=== PATIENT | male | born 1980 | race Caucasian/White ===

== ENCOUNTER 2021-10-02 15:49 | Emergency (ER) | payer SELFPAY ==
[2021-10-02 15:53] VITALS: BP 150/93; PULSE 94; RESP 16; TEMP 36.4; O2SAT 96; BMI 24.3
--- NOTE | 2021-10-02 16:04 | W.ED.EXTPRO ---
Documented by User: VIGNESH Broussard 10/02/21 16:12 HPI - Extremity Problem General: Chief complaint: Extremity Injury, Lower Stated complaint: left foot injury Time Seen by Provider: 10/02/21 15:50 Source: patient Mode of arrival: ambulatory Limitations: no limitations History of Present Illness: Patient is a 41-year-old male who presents to ED today after being referred here from the walk-in clinic for concerns of left lower extremity pain and swelling. Patient states he began noticing swelling approximately 4 to 5 days ago and states it has progressively worsened. He denies any obvious injury or trauma but states for work he often does jump down from things and may be tweaked something in there. He states he is ambulatory without assistance and does not complain of pain to any particular area of the extremity. Patient denies numbness, tingling, loss of sensation. Denies coolness or pallor to the extremity. He states he does often have long car rides for work. No history of malignancy. No recent surgeries. MD Complaint: extremity pain and extremity swelling Onset (ago): day(s) Pain Consistency: constant Location: left and lower extremity Radiation: none Relieving factors: other (reports pain is improved first thing in the morning and worsens throughout the day) Exacerbating factors: weight bearing and walking Associated symptoms: Reports no associated symptoms; Deny chest pain, fever(s) or rash Review of Systems Const: Denies: fever(s), chills, body aches, fatigue or malaise Card: Denies: chest pain Resp: Denies: dyspnea GI: Denies: abdominal pain Musc: Reports: extremity pain and extremity swelling; Denies: neck pain, back pain, joint pain or joint swelling Skin/Breast: Denies: rash Neuro: Denies: headache(s), numbness in extremities, weakness in extremities, sensory changes or difficulty walking [facility] ED PFSH: Social History Smoking and tobacco status: current every day smoker Physical Exam Const: COMMON NORMALS: no acute distress, patient oriented x3, no limitations and alert GENERAL APPEARANCE: cooperative ORIENTATION/CONSCIOUSNESS: Yes awake, Yes oriented to person, Yes oriented to place and Yes oriented to time Resp: COMMON NORMALS: normal respiratory effort and clear to auscultation bilaterally AUSCULTATION: clear to auscultation bilaterally Cardio: COMMON NORMALS: regular rate and regular rhythm RATE: regular rate RHYTHM: regular rhythm Extremity: COMMON NORMALS: full ROM and capillary refill normal GENERAL: Yes normal exam except as noted OTHER: pt has obvious swelling to L LE when compared to R-swelling starts just distal to knee and affects calf, ankle, foot; DP/PT pulses appreciated and cap refill is brisk; sensory intact; he does not have any localized bony tenderness Neuro: RUTH COMA SCALE: document GCS findings Ruth coma scale eye opening: Spontaneous Ruth coma scale verbal response: Orientated Ruth coma scale motor response: Obey commands Ruth coma scale total score: 15 COMMON NORMALS: patient oriented x3, moves all extremities, no focal motor deficits, no sensory deficits noted and gait normal SENSORIUM/ORIENTATION: Yes alert, Yes oriented to person, Yes oriented to place and Yes oriented to time GAIT: Yes Normal gait present Skin: COMMON NORMALS: no rashes or lesions noted GENERAL SKIN EXAM: no rashes or lesions noted TRAUMA: no lacerations or abrasions Course Vital Signs: Vital signs: Vital Signs Temperature 97.6 F 10/02/21 15:53 Pulse Rate 94 10/02/21 15:53 Respiratory Rate 16 10/02/21 17:20 Blood Pressure 118/70 10/02/21 17:20 Pulse Oximetry 96 10/02/21 15:53 MDM - Extremity (Nontraumatic) Lab Data : 10/02/21 17:15 10/02/21 17:15 Radiology Impressions Venous Duplex 10/02/21 16:05 IMPRESSION: 1. Positive for DVT distal superficial femoral vein and popliteal vein. 2. Otherwise negative examination. ADDENDUM: 10/02/21 0715 Findings were discussed with Dr. Sinha at 10/02/2021 5:39 PM CDT. Laboratory Results PT 12.70 SECONDS (12.1-14.9) 10/02/21 17:15 INR 0.92 (0.8-1.2) 10/02/21 17:15 APTT 27.7 SECONDS (23.9-36.7) 10/02/21 17:15 Sodium 139 mmol/L (136-145) 10/02/21 17:15 Potassium 4.3 mmol/L (3.5-5.1) 10/02/21 17:15 Chloride 102 mmol/L (98-107) 10/02/21 17:15 Carbon Dioxide 28 mmol/L (22-29) 10/02/21 17:15 Anion Gap 13.3 (5-19) 10/02/21 17:15 BUN 20 mg/dL (6-20) 10/02/21 17:15 Creatinine 1.0 mg/dL (0.7-1.2) 10/02/21 17:15 GFR Calculation 82.3 mL/min (90-130) L 10/02/21 17:15 Glucose 68 mg/dL (65-115) 10/02/21 17:15 Calculated Osmolality 289 mOsm/kg (285-295) 10/02/21 17:15 Calcium 9.4 mg/dL (8.5-10.5) 10/02/21 17:15 Total Bilirubin 0.2 mg/dL (0.15-1.2) 10/02/21 17:15 AST 19 U/L (0-40) 10/02/21 17:15 ALT 17 U/L (0-41) 10/02/21 17:15 Alkaline Phosphatase 80 IU/L (40-130) 10/02/21 17:15 Total Protein 7.5 g/dL (6.6-8.7) 10/02/21 17:15 Albumin 3.9 g/dL (3.5-5.2) 10/02/21 17:15 Globulin 3.6 g/dL (1.3-4.6) 10/02/21 17:15 Discharge Plan Discharge Patient Disposition: Home Clinical Impression: Left leg DVT Qualifiers: Affected thrombotic vein of extremity: femoral Chronicity: acute Qualified Code(s): I82.412 - Acute embolism and thrombosis of left femoral vein Condition: Stable Prescriptions: New Eliquis DVT-PE Treat 30D Start 5 mg (74 tabs) tablets,dose pack See Rx Instructions .ROUTE .COMPLEX Qty: 74 0RF Rx Instructions: orally per package directions Discharge Orders: Discharge ED (Routine); Ordered 10/02/21 Ordered By: Victor Manuel Moreno Discharge Diet: Usual diet Discharge Activity: Increase activity as tolerated Patient Instructions: Deep Vein Thrombosis (ED), Opioid Safety Activity Restrictions/Additional Instructions: Take medications as directed. Use acetaminophen as needed for pain. Drink plenty of water with medication. Follow-up with primary care in 1 week for recheck. Return to ER for new concerns. You may take medication prescription to one of the [facility] pharmacies in the morning and have the prescription charge to your ER bill. They also offer 340B medication assistance for those who do not have insurance. Case management will contact you regarding follow-up appointment for your acute condition. Sign Out Sign Out Data: Patient Sign Out occurred on 10/02/21 at 17:07. Patient's care was discussed, and care was transferred from to Victor Manuel Moreno. Post-Handoff Eval: Patient resting well, swelling is noted to the left distal extremity with positive Homans' sign. Coding Level of Care Code ED Positive Printer Operator for Chg Fwd Exam Detailed Documented by User: PRINCESS Alexandre 10/02/21 18:04 HPI - Extremity Problem General: Chief complaint: Extremity Injury, Lower Stated complaint: left foot injury Time Seen by Provider: 10/02/21 15:50 [facility] ED PFSH: Social History Smoking and tobacco status: current every day smoker Physical Exam Neuro: RUTH COMA SCALE: document GCS findings Narvon coma scale total score: 15 Course Vital Signs: Vital signs: Vital Signs Temperature 97.6 F 10/02/21 15:53 Pulse Rate 94 10/02/21 15:53 Respiratory Rate 16 10/02/21 17:20 Blood Pressure 118/70 10/02/21 17:20 Pulse Oximetry 96 10/02/21 15:53 MDM - Extremity (Nontraumatic) Medical Decision Making 41-year-old male patient comes in today with complaints of swelling and tenderness to the left lower leg. Symptoms started about 1 week ago. Patient drives a lot for work. On exam patient has distal pulses intact. Patient does have significant swelling from the knee down. There is some vascular congestion as noted by increased varicosities. Differential diagnosis includes but not limited to peripheral edema, cellulitis, DVT. Ultrasound of the extremity did note a femoral DVT extending into the popliteal. Patient be placed on apixaban. Case management was quested to assist patient with follow-up appointment. Patient was [facility]. Patient reported understanding of care plan need for follow-up or return to the ER. Lab Data : 10/02/21 17:15 10/02/21 17:15 Radiology Impressions Venous Duplex 10/02/21 16:05 IMPRESSION: 1. Positive for DVT distal superficial femoral vein and popliteal vein. 2. Otherwise negative examination. ADDENDUM: 10/02/211741 Findings were discussed with Dr. Sinha at 10/02/2021 5:39 PM CDT. Laboratory Results PT 12.70 SECONDS (12.1-14.9) 10/02/21 17:15 INR 0.92 (0.8-1.2) 10/02/21 17:15 APTT 27.7 SECONDS (23.9-36.7) 10/02/21 17:15 Sodium 139 mmol/L (136-145) 10/02/21 17:15 Potassium 4.3 mmol/L (3.5-5.1) 10/02/21 17:15 Chloride 102 mmol/L (98-107) 10/02/21 17:15 Carbon Dioxide 28 mmol/L (22-29) 10/02/21 17:15 Anion Gap 13.3 (5-19) 10/02/21 17:15 BUN 20 mg/dL (6-20) 10/02/21 17:15 Creatinine 1.0 mg/dL (0.7-1.2) 10/02/21 17:15 GFR Calculation 82.3 mL/min (90-130) L 10/02/21 17:15 Glucose 68 mg/dL (65-115) 10/02/21 17:15 Calculated Osmolality 289 mOsm/kg (285-295) 10/02/21 17:15 Calcium 9.4 mg/dL (8.5-10.5) 10/02/21 17:15 Total Bilirubin 0.2 mg/dL (0.15-1.2) 10/02/21 17:15 AST 19 U/L (0-40) 10/02/21 17:15 ALT 17 U/L (0-41) 10/02/21 17:15 Alkaline Phosphatase 80 IU/L (40-130) 10/02/21 17:15 Total Protein 7.5 g/dL (6.6-8.7) 10/02/21 17:15 Albumin 3.9 g/dL (3.5-5.2) 10/02/21 17:15 Globulin 3.6 g/dL (1.3-4.6) 10/02/21 17:15 Discharge Plan Discharge Patient Disposition: Home Clinical Impression: Left leg DVT Qualifiers: Affected thrombotic vein of extremity: femoral Chronicity: acute Qualified Code(s): I82.412 - Acute embolism and thrombosis of left femoral vein Condition: Stable Prescriptions: New Eliquis DVT-PE Treat 30D Start 5 mg (74 tabs) tablets,dose pack See Rx Instructions .ROUTE .COMPLEX Qty: 74 0RF Rx Instructions: orally per package directions Discharge Orders: Discharge ED (Routine); Ordered 10/02/21 Ordered By: Victor Manuel Moreno Discharge Diet: Usual diet Discharge Activity: Increase activity as tolerated Patient Instructions: Deep Vein Thrombosis (ED), Opioid Safety Activity Restrictions/Additional Instructions: Take medications as directed. Use acetaminophen as needed for pain. Drink plenty of water with medication. Follow-up with primary care in 1 week for recheck. Return to ER for new concerns. You may take medication prescription to one of the [facility] pharmacies in the morning and have the prescription charge to your ER bill. They also offer 340B medication assistance for those who do not have insurance. Case management will contact you regarding follow-up appointment for your acute condition. Sign Out Sign Out Data: Patient Sign Out occurred on 10/02/21 at 17:07. Patient's care was discussed, and care was transferred from to Victor Manuel Moreno. Post-Handoff Eval: Patient resting well, swelling is noted to the left distal extremity with positive Homans' sign. Coding Level of Care Code ED Positive Printer Operator for Jackelin Fwsheree Exam Detailed
--- NOTE | 2021-10-02 16:05 | USR_ITS ---
PROCEDURE INFORMATION: Exam: US Duplex Left Lower Extremity Veins, Limited Exam date and time: 10/02/2021 4:51 PM Age: 41 years old Clinical indication: Pain; Leg, lower; Left; Additional info: Swelling/pain TECHNIQUE: Imaging protocol: Real-time Duplex ultrasound of the Left Lower Extremity with 2-D pardo scale, color Doppler flow and spectral waveform analysis with image documentation. Limited exam focused on the left lower extremity veins. COMPARISON: No relevant prior studies available. FINDINGS: Left deep veins: There is positive ultrasound evidence of venous thrombosis involving the distal superficial femoral vein and the popliteal vein. These vessels show intraluminal thrombus, and are not compressible and do not show flow. Left superficial veins: Unremarkable. Saphenofemoral junction is patent without thrombus. Right deep veins: The common femoral, proximal femoral, proximal profunda femoral and trifurcation veins are patent without thrombus. Normal Doppler waveforms. Normal compressibility and/or augmentation response. Soft tissues: Unremarkable. US/CV venous duplex [facility] [id number] IMPRESSION: 1. Positive for DVT distal superficial femoral vein and popliteal vein. 2. Otherwise negative examination.
[2021-10-02 17:20] VITALS: BP 118/70; RESP 16
[2021-10-02 17:23] LABS: Hematocrit 36.4 % (42.0-52.0); Hemoglobin 11.7 g/dL (11.7-16.6); Mean Corpuscular HGB Conc 32.1 g/dL (30.0-36.0); Mean Corpuscular Hemoglobin 28.8 pg (28.0-34.0); Mean Corpuscular Volume 89.7 fl (80-94); Mean Platelet Volume 9.8 fL (7.4-10.4); Platelet Count 360 10^3/cmm (130-400); Red Blood Count 4.06 10^6/uL (4.1-5.3); Red Cell Distribution Width 12.9 % (12.1-15.1); White Blood Count 5.7 10^3/uL (4.0-10.0)
[2021-10-02 17:41] LABS: INR 0.92 (0.8-1.2); Partial Thromboplastin Time 27.7 SECONDS (23.9-36.7)
[2021-10-02 17:53] LABS: Alanine Aminotransferase 17 U/L (0-41); Albumin Level 3.9 g/dL (3.5-5.2); Alkaline Phosphatase 80 IU/L (40-130); Anion Gap 13.3 (5-19); Aspartate Amino Transferase 19 U/L (0-40); Blood Urea Nitrogen 20 mg/dL (6-20); Calcium 9.4 mg/dL (8.5-10.5); Carbon Dioxide 28 mmol/L (22-29); Chloride 102 mmol/L (98-107); Globulin 3.6 g/dL (1.3-4.6); Glomerular Filtration Rate 82.3 mL/min (90-130); Glucose 68 mg/dL (65-115); Osmolality Calculated 289 mOsm/kg (285-295); Potassium 4.3 mmol/L (3.5-5.1); Sodium 139 mmol/L (136-145); Total Bilirubin 0.2 mg/dL (0.15-1.2); Total Protein 7.5 g/dL (6.6-8.7)
[2021-10-02] MEDS: apixaban 5 mg Tablet 10 MG PO (18:12)
[2021-10-02 18:15] LABS: Slide Review Slide Review Perform
[2021-10-02 18:17] LABS: Absolute Eosinophils 0.1 10^3/cmm (0.0-0.7); Absolute Neutrophil 4.2 10^3/cmm (1.4-6.5); Absolute Segmented Neutrophil 4.2 10/cmm (1.6-7.1); Eosinophils 2 %; Lymphocytes 12 %; Lymphocytes Absolute 1.3 10^3/cmm (1.2-3.4); Monocytes Absolute 0.2 10^3/cmm (0.1-0.6); Platelet Estimate Normal (Normal); Segmented Neutrophils 73 %; Total Cells Counted 100 (0-100)
[2021-10-02 18:48] VITALS: BP 127/85; PULSE 78; O2SAT 97
--- NOTE | 2021-10-04 09:59 | DCPLANNER ---
department store manager had message to speak with patient about getting established with a primary care physician. department store manager called phone number [phone], unable to speak with patient and unable to leave a voicemail for patient.
== END 2021-10-02 18:50 | disposition home or self-care (01) ==
PROVIDERS: Physician Assistant; Emergency Provider Nurse Practitioner Family
DX: I82.402 Acute embolism and thrombosis of unspecified deep veins of left lower extremity (principal); M79.89 Other specified soft tissue disorders
CPT/HCPCS: 80053; 85007; 85025; 85610; 85730; 93971; 99283